=== PATIENT | female | born 1970 | race Two or more races ===

== ENCOUNTER → 2017-10-10 | Emergency (ER) | payer OTHER ==
[~2017-10-10] VITALS: Ht 160 cm; Wt 77.1 kg
[~2017-10-10] MED LIST: COZAAR100 MG PO; HUMALOG100 UNIT/1; HUMULIN 70/30 V10 ML SQ; LANTUS100 U/ML SQ; LEVSIN/SL0.125 MG SL; METFORMIN HCL500 MG; METOPROLOL ER-1 EAC1 PO; NEXIUM 24HR20 MG; PEPCID20 MG PO; PEPCID40 MG PO; PHENERGAN25 MG PO; PNEU16DI2; SEPTRA DS TABLE1 TAB PO; TOUJEO SOL300 UNIT/1 SQ; ZANTAC150 M3; ZOFRAN4 MG PO
== END | disposition home or self-care (01) ==
LOC: ER 17:53
DX: I10 Essential (primary) hypertension (principal); R51 Headache

== ENCOUNTER 2018-04-11 19:36 | Emergency (ER) | payer OTHER ==
[~2018-04-11] VITALS: Ht 165.1 cm; Wt 72.6 kg
[2018-04-11] MEDS ORDERED: NIFE60TA3 (19:53)
[2018-04-11] MEDS ORDERED: PROMETH-CODEIN 65 ML PO (22:42)
[2018-04-11] MEDS ORDERED: IPRAT-ALBUT 0.5-3 ML IH (22:42)
[2018-04-11] MEDS ORDERED: BUDESONIDE0.5 MG/2 M IH (22:42)
[2018-04-11] MEDS ORDERED: TESSALON PERLE100 M1 PO (22:42)
== END 2018-04-11 22:53 | disposition home or self-care (01) ==
LOC: ER 19:36
DX: J06.9 Acute upper respiratory infection, unspecified (principal)

== ENCOUNTER 2018-06-12 13:26 | Emergency (ER) | payer OTHER ==
[~2018-06-12] VITALS: Ht 162.6 cm; Wt 77.1 kg
[~2018-06-12 13:26] MED LIST changes: +BUDESONIDE0.5 MG/2 M IH; +IPRAT-ALBUT 0.5-3 ML IH; +NIFE60TA3; +PROMETH-CODEIN 65 ML PO; +TESSALON PERLE100 M1 PO
== END 2018-06-12 20:25 | disposition home or self-care (01) ==
LOC: ER 13:26
DX: N83.292 Other ovarian cyst, left side (principal); R10.32 Left lower quadrant pain

== ENCOUNTER 2018-09-27 20:25 | Emergency (ER) | payer OTHER ==
[~2018-09-27] VITALS: Ht 162.6 cm; Wt 79.4 kg
[2018-09-27] MEDS ORDERED: SKELAXIN800 MG PO (23:39)
[2018-09-27] MEDS ORDERED: CELEBREX50 MG PO (23:39)
== END 2018-09-27 23:53 | disposition home or self-care (01) ==
LOC: ER 20:25
DX: M54.42 Lumbago with sciatica, left side (principal)

== ENCOUNTER 2019-06-01 20:39 | Emergency (ER) | payer OTHER ==
[~2019-06-01] VITALS: Ht 162.6 cm; Wt 78.0 kg
[~2019-06-01 20:39] MED LIST changes: +CELEBREX50 MG PO; +SKELAXIN800 MG PO
== END 2019-06-01 21:51 | disposition home or self-care (01) ==
LOC: ER 20:39
DX: S40.011A Contusion of right shoulder, initial encounter (principal); W18.39XA Other fall on same level, initial encounter; Y93.89 Activity, other specified; Y92.098 Other place in other non-institutional residence as the place of occurrence of the external cause; Y99.8 Other external cause status

== ENCOUNTER 2019-09-22 22:10 | Emergency (ER) | payer OTHER ==
[~2019-09-22] VITALS: Ht 162.6 cm; Wt 77.1 kg
[2019-09-22] MEDS ORDERED: ZITHROMAX500 MG PO (23:38)
[2019-09-22] MEDS ORDERED: DOLOGEN CAPLET1 EACH PO (23:38)
[2019-09-22] MEDS ORDERED: TUSNEL LIQUID178 ML PO (23:38)
== END 2019-09-22 23:57 | disposition home or self-care (01) ==
LOC: ER 22:10
DX: J06.9 Acute upper respiratory infection, unspecified (principal)

== ENCOUNTER 2019-10-08 23:19 | Emergency (ER) | payer OTHER ==
[~2019-10-08] VITALS: Ht 162.6 cm; Wt 77.1 kg
[~2019-10-08 23:19] MED LIST changes: +DOLOGEN CAPLET1 EACH PO; +TUSNEL LIQUID178 ML PO; +ZITHROMAX500 MG PO
[2019-10-09] MEDS ORDERED: ALBUTEROL2.5 MG/3 M IH (02:45)
[2019-10-09] MEDS ORDERED: PROMETHAZINE-D473 M1 PO (02:45)
== END 2019-10-09 03:00 | disposition home or self-care (01) ==
LOC: ER 23:19
DX: J40 Bronchitis, not specified as acute or chronic (principal)

== ENCOUNTER 2020-02-12 23:18 | Emergency (ER) | payer OTHER ==
[~2020-02-12] VITALS: Ht 162.6 cm; Wt 74.8 kg
[~2020-02-12 23:18] MED LIST changes: +ALBUTEROL2.5 MG/3 M IH; +PROMETHAZINE-D473 M1 PO
[2020-02-12] MEDS ORDERED: GABAPENTIN400 MG PO (23:28)
== END 2020-02-13 03:23 | disposition home or self-care (01) ==
LOC: ER 23:18
DX: R10.11 Right upper quadrant pain (principal); R10.31 Right lower quadrant pain; Z03.818 Encounter for observation for suspected exposure to other biological agents ruled out

== ENCOUNTER 2020-02-14 23:55 | Emergency (ER) | payer OTHER ==
[~2020-02-14] VITALS: Ht 162.6 cm; Wt 75.3 kg
[~2020-02-14 23:55] MED LIST changes: +GABAPENTIN400 MG PO
== END 2020-02-15 12:06 | disposition home or self-care (01) ==
LOC: ER 23:55
DX: N39.0 Urinary tract infection, site not specified (principal); N28.9 Disorder of kidney and ureter, unspecified; R10.31 Right lower quadrant pain

== ENCOUNTER 2020-03-05 10:43 | Outpatient (CLI) | payer OTHER | END 2020-03-05 11:34 | disposition home or self-care (01) | LOC: RX STUDY 10:43 | PROVIDERS: ATTEND Internal Medicine Gastroenterology | DX: K30 Functional dyspepsia (principal); K31.84 Gastroparesis ==

== ENCOUNTER 2020-06-16 16:43 | Emergency (ER) | payer OTHER ==
[~2020-06-16] VITALS: Ht 162.6 cm; Wt 75.3 kg
== END 2020-06-16 20:00 | disposition home or self-care (01) ==
LOC: ER 16:43
DX: R31.29 Other microscopic hematuria (principal); Z03.818 Encounter for observation for suspected exposure to other biological agents ruled out; R10.32 Left lower quadrant pain

== ENCOUNTER 2022-07-13 11:02 | Emergency (ER) | payer OTHER ==
[~2022-07-13] VITALS: Ht 167.6 cm; Wt 59.0 kg
[2022-07-13] MEDS ORDERED: MOUNJARO5 MG/0.5 M SQ (11:30)
[2022-07-13] MEDS ORDERED: MORGIDOX100 MG PO (12:51)
== END 2022-07-13 13:05 | disposition home or self-care (01) ==
LOC: ER 11:02
DX: L03.031 Cellulitis of right toe (principal); E11.9 Type 2 diabetes mellitus without complications; Z79.84 Long term (current) use of oral hypoglycemic drugs; I10 Essential (primary) hypertension

== ENCOUNTER 2023-02-07 16:53 | Emergency (ER) | payer OTHER ==
[~2023-02-07] VITALS: Ht 162.6 cm; Wt 70.3 kg
[~2023-02-07 16:53] MED LIST changes: +MORGIDOX100 MG PO; +MOUNJARO5 MG/0.5 M SQ
== END 2023-02-07 20:26 | disposition home or self-care (01) ==
LOC: ER 16:53
DX: H10.9 Unspecified conjunctivitis (principal); M79.671 Pain in right foot

== ENCOUNTER 2023-09-13 07:18 | Emergency (ER) | payer OTHER ==
[~2023-09-13] VITALS: Ht 162.6 cm; Wt 61.2 kg
[2023-09-13] MEDS ORDERED: XIGDUO XR 10 M1 EAC1 PO (07:31)
[2023-09-13] MEDS ORDERED: RYBELSUS14 MG PO (07:32)
[2023-09-13] MEDS ORDERED: COZAAR100 MG PO (07:32)
[2023-09-13] MEDS ORDERED: NIFEDIPINE20 MG (07:32)
[2023-09-13 08:40] LABS: HEMOGLOBIN 13.7 g/dL (12.0-15.00); MEAN CELL VOLUME 92.3 fL (80.00-100.00); MEAN CORPUSCULAR HEMOGLOBIN 31.7 pg (27.00-32.0); MEAN CORPUSCULAR HGB CONC 34.3 g/dl (32.0-36.0); PLATELET COUNT 269 K/uL (150-450); RED BLOOD COUNT 4.34 M/uL (4.00-6.00); RED CELL DISTRIBUTION WIDTH 13.3 % (11.5-14.5)
[2023-09-13 08:56] LABS: URINE APPEARANCE Clear; URINE BILIRRUBIN Negative (NEGATIVE); URINE BLOOD Negative; URINE COLOR Yellow; URINE LEUKOCYTE Negative; URINE NITRATE Negative; URINE PROTEIN Negative (NEGATIVE); URINE UROBILINOGEN 0.2 E.U./dl
[2023-09-13 09:02] LABS: URINE BACTERIA 191.4 uL (0.0-1933); URINE EPITHELIAL CELLS 18.1 uL (0.0-38.8); URINE RBC 2.1 uL (0.0-20.8)
[2023-09-13 09:08] LABS: URINE GLUCOSE >=1000 MG/DL (NEGATIVE); URINE WBC 1.6 uL (0.0-23.2)
[2023-09-13 09:17] LABS: ALBUMIN 3.9 gm/dL (3.4-5.0); BILIRUBIN TOTAL 0.41 mg/dL (0.3-1.2); CALCIUM 9.6 mg/dL (8.5-10.1); CREATININE SERUM 1.13 mg/dL (0.55-1.02); GFR 50.56; GLOBULINA 3.7 G/DL (2.4-3.5); POTASSIUM 3.69 mEq/L (3.5-5.1); TOTAL PROTEIN 7.6 gm/dL (6.4-8.2)
== END 2023-09-13 19:31 | disposition home or self-care (01) ==
LOC: ER 07:20
PROVIDERS: Emergency Medicine
DX: N30.90 Cystitis, unspecified without hematuria (principal); R10.9 Unspecified abdominal pain; E11.9 Type 2 diabetes mellitus without complications; Z79.84 Long term (current) use of oral hypoglycemic drugs; I10 Essential (primary) hypertension; K59.00 Constipation, unspecified